=== PATIENT | male | born 1960 | race Caucasian/White ===

== ENCOUNTER → 2020-09-23 | Day surgery (SDC) | payer BC ==
[2020-09-23 09:50] VITALS: BP 133/70; TEMP 98.2
== END ==
LOC: CSHSDC 08:30
PROVIDERS: ATTEND Internal Medicine Cardiovascular Disease
DX: I48.0 Paroxysmal atrial fibrillation (principal); I48.19 Other persistent atrial fibrillation; I42.1 Obstructive hypertrophic cardiomyopathy; G47.33 Obstructive sleep apnea (adult) (pediatric); Z95.810 Presence of automatic (implantable) cardiac defibrillator; Z79.01 Long term (current) use of anticoagulants; F17.210 Nicotine dependence, cigarettes, uncomplicated; Z79.899 Other long term (current) drug therapy
CPT/HCPCS: 92960; 93005; 93010

== ENCOUNTER 2024-07-10 07:15 | Day surgery (SDC) | payer MEDICARE ==
[2024-07-10 07:51] VITALS: BP 109/71; TEMP 97.4
[2024-07-10] MEDS ORDERED: PHENYLEPHRINE-NS 100 MCG/ML 10 ML SYRINGE ONE (08:07)
[2024-07-11] MEDS ORDERED: FLU (Fluarix Triv) TS24-25(6MOS UP)/PF 45 MCG/0.5 ML Syringe IM ONE (09:00)
== END 2024-07-10 08:36 | disposition home or self-care (01) ==
LOC: CSHSDC 07:15
PROVIDERS: ATTEND Internal Medicine Cardiovascular Disease
DX: I48.0 Paroxysmal atrial fibrillation (principal); Z53.9 Procedure and treatment not carried out, unspecified reason; I48.4 Atypical atrial flutter; I49.3 Ventricular premature depolarization; I11.0 Hypertensive heart disease with heart failure; I50.22 Chronic systolic (congestive) heart failure; K21.9 Gastro-esophageal reflux disease without esophagitis; G47.33 Obstructive sleep apnea (adult) (pediatric); Z95.810 Presence of automatic (implantable) cardiac defibrillator; Z88.8 Allergy status to other drugs, medicaments and biological substances; Z79.01 Long term (current) use of anticoagulants; Z79.82 Long term (current) use of aspirin; Z79.899 Other long term (current) drug therapy
CPT/HCPCS: 93005